=== PATIENT | female | born 1940 | race Caucasian/White ===

== ENCOUNTER → 2019-03-21 | Day surgery (SDC) | payer OTHER ==
[~2019-03-21] VITALS: Ht 167.6 cm; Wt 122.5 kg
[~2019-03-21] MED LIST: APAP650 PO; ASPIR 8181 MG PO; ESOMEPRAZOLE MA20 MG PO; FISH OIL 1,001000 M2 PO; GLUCOSAMINE CH1 EAC2 PO; LOSARTAN-HCTZ1 EAC1 PO; MYRBETRIQ25 MG PO; SINGULAIR 10 MG10 M1 PO; ZOCOR20 MG PO; ZYRTEC10 M5 PO
[2019-03-21 08:53] VITALS: BP 147/65
[2019-03-21 12:50] VITALS: BP 147/65
--- NOTE | 2019-03-23 10:07 | PATH ---
[facility] [place] [address] PATHOLOGY RPT PROCEDURE Name: HEAVENLY ROMERO Room #: REG [facility] M.R.#: [id number] ������������������ Admission: 03/21/19 ������������������ Date of : 44 Discharge: Report #: [id number] Path Case #: [id number] [facility] Accession Number: [id number] . 01 Material submitted: . hip - RIGHT TOTAL HIP SYNOVIUM/HPF. Modifiers: right . 01 Clinical history: . Right hip pain . 02 Diagnosis: "Right total hip synovium", removal: - Synovial tissue with mild reactive changes and focal minimal mild chronic inflammation. - No neutrophils seen in numerous high power mishra examined. (SKM:rosita; 03/22/2019) QMS/03/22/2019 . 02 Electronically signed: . Sky Nguyen MD, Pathologist NPI- [id number] . 01 Gross description: . The specimen is received in formalin, labeled "[place], Heavenly, right total hip synovium/HPF" and consists of multiple fragments of yellow-white tissue measuring 1.8 x 1.3 x 0.3 cm in aggregate which are entirely submitted in A1. (SDY; 03/21/2019) SYU/SYU . 02 Pathologist provided ICD-10: M65.851 . 02 CPT . 481231 Specimen Comment: A courtesy copy of this report has been sent to Specimen Comment: [phone], . Specimen Comment: Report sent to / DR SALVADOR Performed at: [address], [place], [place] [id number] MD Eleazar Novoa MD Phone: [phone] Performed at: [address] [id number] MD Bita Arvizu MD Phone: [phone]
--- NOTE | 2019-03-28 15:06 | O ---
[address] [address] OPERATIVE REPORT Name: HEAVENLY ROMERO Room #: REG [facility].#: [id number] Admission: 03/21/19 ������������������ Attend Phys: Demetri Dominguez MD Discharge: ������������������ Date of : 44 Report #: [id number] THIS REPORT FOR: //name// CC: Demetri Burroughs DATE OF SERVICE: 03/21/2019 SERVICE: Orthopedics. FACILITY: [facility]. SURGEON: Demetri Dominguez MD. NURSE NAVIGATOR: Sasha Patel. INDICATION FOR NURSE NAVIGATOR: Extremity positioning, arthroscope management and assistance with the tenotomy. PREOPERATIVE DIAGNOSES: 1. Right hip pain. 2. Right hip iliopsoas tendinitis. 3. Status post previous right total hip arthroplasty. POSTOPERATIVE DIAGNOSES: 1. Right hip pain. 2. Right hip iliopsoas tendinitis. 3. Status post previous right total hip arthroplasty. PROCEDURES: 1. Right hip arthroscopic iliopsoas tendon release/tenotomy. 2. Right hip extensive arthroscopic debridement. COMPLICATIONS: None. DRAINS: None. SPECIMENS: Synovial tissue biopsy for permanent. FINDINGS: 1. Stable appearing implant. 2. No evidence of infection. 3. Abrasion and erythema of the iliopsoas tendon at the location of contact with the dorsal side of the anterior acetabular component where it rubbed over the metallic edge and crating and moving estimator blasted acetabular ingrowth coating on the small strip that was exposed beyond the bony edge. [address] [place] [address] OPERATIVE REPORT Name: HEAVENLY ROMERO Room #: REG [facility].#: [id number] Admission: 03/21/19 ������������������ Attend Phys: Demetri Dominguze MD Discharge: ������������������ Date of : 44 Report #: [id number] HISTORY: The patient is a 78-year-old female with a history of right total hip arthroplasty that was demonstrated improvement, no arthritic pain, but she continued to have some pain with hip flexion. This was suggested to be likely iliopsoas tendon and tendinitis. We tried extensive conservative measures. Eventually, she elected to undergo surgical treatment. We discussed arthroscopic approach with a tendon release as a best option and she was in agreement, recognizing that a complete pain relief was not guaranteed in this situation as there could be multiple sources of persistent hip pain following arthroplasty. She gave full informed consent and wished to proceed. Risks include but not limited to pain, bleeding, infection, injury to nerves or blood vessels, and need for further surgery as well as complications related to anesthesia such as stroke, heart attack, pulmonary complications, thromboembolic disease and . Despite the risks, she wished to proceed. PROCEDURE IN DETAIL: After right lower extremity was correctly identified in preoperative holding area as the operative extremity, the patient was taken to the operating room where general anesthesia was induced without complication. She was padded appropriately. Prophylactic antibiotics were administered at appropriate time. Right leg was then prepped and draped in standard sterile fashion. Time-out procedure was performed. C-arm was used to establish in the anterolateral portal under fluoroscopic visualization and then the anteromedial portal was established as well, utilizing a triangulation technique. With the target established at the interface of the femoral component neck as well as the femoral head component, debridement was performed anteriorly allowing access to the prosthesis where the femoral head component and the femoral neck and stem were visualized and found to be intact and stable. There is no evidence of loosening. There is no sign of infection. There is no effusion. I used the arthroscopic punch to obtain a biopsy of the synovium around the base of the femoral head component to ensure that no subclinical infection was present. Shaver was then used to perform debridement of the anterior soft tissues, which was relatively thick working up to the acetabular component where the polyethylene cup could be visualized and then the acetabular cup was seen eventually as well and this was seated securely and well positioned, but her bony anatomy did not allow for complete coverage of the anterior most portion of the acetabular component and there was a sharp metal edge as well as the small area of exposed crating and moving estimator blasted ingrowth surface of the acetabular component and this contacted directly adjacent to the iliopsoas tendon, which was erythematous and had some fraying. Cautery and shaver was used to perform an iliopsoas lengthening with a tenotomy in this area of approximately 60% tendon where the 40% muscle fibers were left intact. The proximal and distal portions of the tendon at the side of a tenotomy was then resected with the shaver completing the contouring and then synovium was resected working around medially and laterally to ensure that there was no scarring and tethering present. The hip was then taken through range of motion [address] [address] OPERATIVE REPORT Name: HEAVENLY ROMERO Room #: REG [facility] [place] Maddy#: [id number] Admission: 03/21/19 ������������������ Attend Phys: Demetri Dominguez MD Discharge: ������������������ Date of : 44 Report #: [id number] and was found to be stable without any further tissue impingement. At this point, the instruments were removed. Arthroscopic effusion was drained. Portal sites were closed. Sterile dressing was applied. The patient was awakened from anesthesia and taken to recovery room in stable condition. No complications. All counts were correct. ��������������������������������������������� <ELECTRONICALLY SIGNED> ���������������������������������������� By: Demetri Dominguez MD ��������������������������������������������� 03/28/19 1506 [id number] Demetri Dominguez MD /nt
== END | disposition home or self-care (01) ==
LOC: OR 07:48
DX: M65.851 Other synovitis and tenosynovitis, right thigh (principal); M76.11 Psoas tendinitis, right hip; M25.551 Pain in right hip; I10 Essential (primary) hypertension; E78.5 Hyperlipidemia, unspecified; G47.30 Sleep apnea, unspecified; K21.9 Gastro-esophageal reflux disease without esophagitis; Z85.828 Personal history of other malignant neoplasm of skin; Z90.49 Acquired absence of other specified parts of digestive tract; Z96.643 Presence of artificial hip joint, bilateral; Z98.41 Cataract extraction status, right eye; Z98.42 Cataract extraction status, left eye; Z98.890 Other specified postprocedural states; Z79.899 Other long term (current) drug therapy
CPT/HCPCS: 50010; 50101; 50386; 51320; 51538; 52001; 52282; 52304; 52313; 56524; 56527; 57092; 57103; 62110; 62900; 70005